=== PATIENT | male | born 1945 | race Hispanic/Latino ===

== ENCOUNTER 2016-10-25 12:30 | Day surgery (SDC) | payer MEDICARE ==
[~2016-10-25 12:30] MED LIST: ANCEF/STERILE WATER 2 GM/20 ML IV NR
--- NOTE | 2016-10-25 13:55 | Anesthesia Consultation ---
Anesthesia Consult and Med Hx Date of service: 10/25/16 - Airway Anesthetic Teeth Evaluation: Good ROM Head & Neck: Adequate Mental/Hyoid Distance: Adequate Mallampati Class: Class II Intubation Access Assessment: Probably Good - Pulmonary Exam CTA: Yes - Cardiac Exam Cardiac Exam: RRR - Pre-Operative Health Status ASA Pre-Surgery Classification: ASA3 Proposed Anesthetic Plan: General - Pulmonary Hx Smoking: Yes (STOPPED 2005 , 1 PPD X 35 YRS) Hx Asthma: No Hx Sleep Apnea: No (BETH PRE SCREEN LOW RISK) - Cardiovascular System Hx Hypertension: No (HDL) Hx Heart Attack/AMI: No Hx Percutaneous Transluminal Coronary Angioplasty (PTCA): No - Central Nervous System Hx Seizures: No CVA: No - Gastrointestinal Hx Gastroesophageal Reflux Disease: Yes (occasional) - Endocrine Hx Renal Disease: No Hx Cirrhosis: No Hx Liver Disease: Yes (liver mets sp live resection in 2013) Hx Non-Insulin Dependent Diabetes: No Hx Thyroid Disease: No - Hematic Hx Anemia: Yes - Other Systems Hx Alcohol Use: Yes (1-2 DRINKS PER DAY) Hx Cancer: Yes (rectal ca sp rectal resection, finished chemo 04/18 ) - Additional Comments Anesthesia Medical History Comments: NAC
--- NOTE | 2016-10-25 13:55 | Anesthesia Day of Surgery ---
Anesthesia Day of Surgery - Day of Surgery Patient Examined: Yes Patient H&P Reviewed: Yes Patient is NPO: Yes
[2016-10-25] MEDS ORDERED: LACTATED RINGERS 1,000 ML IV SCH (14:00)
[2016-10-25] MEDS ORDERED: PEPCID PO NR (14:00)
[2016-10-25] MEDS ORDERED: VERSED IV NR (14:00)
[2016-10-25] MEDS ORDERED: NACL BACTERIOSTATIC INFILTRATI ONE (14:16)
[2016-10-25 14:38] LABS: Basophils % (Auto) 0.6 % (0.0-1.8); Eosinophils % (Auto) 1.3 % (0.0-4.3); Hematocrit 36.1 % (35.5-45.6); Hemoglobin 12.8 gm/dl (11.8-15.2); Mean Corpuscular HGB Conc 36 % (32-34); Mean Corpuscular Hemoglobin 39 pg (28-32); Mean Corpuscular Volume 110 fl (84-94); Platelet Count 146 K/mm3 (140-440); White Blood Count 3.6 K/mm3 (4.5-11.0)
[2016-10-25] MEDS ORDERED: XYLOCAINE MPF 2% ONE (16:01)
[2016-10-25] MEDS ORDERED: DIPRIVAN 10 MG/ML IV ONE (16:01)
[2016-10-25] MEDS ORDERED: SUBLIMAZE ONE (16:01)
[2016-10-25] MEDS ORDERED: ROBINUL ONE (16:52)
[2016-10-25] MEDS ORDERED: DECADRON ONE (16:53)
[2016-10-25] MEDS ORDERED: ZOFRAN ONE (16:53)
[2016-10-25] MEDS ORDERED: ANTIBIOTIC OINT TP ONE ×2 (16:59→17:12)
--- NOTE | 2016-10-25 17:06 | Short Stay Summary ---
Short Stay Documentation Date of service: 10/25/16 - History H&P: obtained from office - Allergies and Medications Current Medications: Allergies No Known Allergies Allergy (Verified 10/23/16 15:23) Home Medications Medication Instructions Recorded Confirmed Last Taken Type Cyanocobalamin (Vitamin B-12) 1 dose IM QMONTH 10/23/16 10/25/16 10/02/16 History [Vitamin B12] Active Medications Cefazolin Sodium (Ancef/Sterile Water 2 Gm/20 Ml) 2 gm IV PREOP NR Stop: 10/25/16 23:59 Famotidine (Pepcid) 20 mg PO PREOP NR Stop: 10/25/16 23:59 Last Admin: 10/25/16 14:40 Dose: 20 mg Lactated Ringer's (Lactated Ringers) 1,000 mls @ 100 mls/hr IV DIRECT RAHEEM Last Admin: 10/25/16 14:38 Dose: 100 mls/hr Midazolam HCl (Versed) 2 mg IV PREOP NR Stop: 10/25/16 23:59 - Brief post op/procedure progress note Date of procedure: 10/25/16 Pre-op diagnosis: scrotal mass 1cm Post-op diagnosis: same Procedure: excision scrotal mass Anesthesia: GETA Surgeon: JOHANA KENNEY Estimated blood loss: minimal Pathology: list (scrotal mass) Specimen disposition: to lab Condition: stable - Hospital course Hospital course: tomás & bailey on chart - Disposition Condition at discharge: Stable Disposition: DC-01 TO HOME OR SELFCARE Short Stay Discharge Plan Follow up with: JAYCE WARREN MD [Primary Care Provider] - 7 Days
[2016-10-25] MEDS ORDERED: NACL 0.9% IR ONE (17:13)
[2016-10-25] MEDS ORDERED: DILAUDID IV PRN (17:24)
[2016-10-25] MEDS ORDERED: TORADOL IV PRN ×4 (17:24→17:50)
[2016-10-25] MEDS ORDERED: ZOFRAN IV PRN (17:24)
[2016-10-25] MEDS ORDERED: NORCO 5/325 PO PRN (17:40)
[2016-10-25 18:43] VITALS: BP 138/58
--- NOTE | 2016-10-25 21:32 | Operative Report ---
PREOPERATIVE DIAGNOSIS: Perineal mass (scrotal). POSTOPERATIVE DIAGNOSIS: Perineal mass (scrotal). PROCEDURE: Excision of perineal mass. SURGEON: Oscar Torres MD ANESTHESIA: General. ESTIMATED BLOOD LOSS: Minimal. FLUIDS: Crystalloid. COMPLICATIONS: No complications. INDICATIONS: This 71-year-old gentleman referred by Dr. Vance Anderson for evaluation for scrotal mass. The patient has a history of rectal cancer with liver mets, status post chemotherapy and radiation therapy in the past. He has actually been seen by Dr. Rayo Montoya as well and Dr. Ana Mosley and Dr. Jeyson Mosley, recently completed his chemotherapy and his port was removed. He was noted to have a perineal lesion and was excised by Dr. 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 He was seen this week and presents now for excision. Risks, benefits, and complications were explained. DESCRIPTION OF PROCEDURE: The patient was taken to the operative suite, placed in a supine position. After adequate general anesthesia, he was prepped and draped in a sterile fashion. Peritoneum could be appreciated. This mass was approximately 1 cm, which was very similar to the size before. The patient states maybe a little bigger. Using a knife excision of the mass with a margin approximately 5 mm margin of normal tissue was removed and sent for routine pathologic evaluation. Adequate hemostasis was achieved. Subcutaneous layer of 2-0 Vicryl interrupted was placed as well as 2-0 Vicryl on the skin, interrupted. The patient tolerated the procedure well. Bacitracin ointment and mesh briefs with fluffs were placed. He was extubated and taken to recovery room. He will go home on [place] and [employer] and follow up in the office. JOB# [id number] [facility]
== END 2016-10-25 19:15 | disposition home or self-care (01) ==
LOC: EDSEX 12:30 → OR 12:30
PROVIDERS: ATTEND Urology
DX: C63.2 Malignant neoplasm of scrotum (principal); K21.9 Gastro-esophageal reflux disease without esophagitis; D64.9 Anemia, unspecified; Z87.891 Personal history of nicotine dependence; Z72.89 Other problems related to lifestyle; Z85.048 Personal history of other malignant neoplasm of rectum, rectosigmoid junction, and anus; Z85.05 Personal history of malignant neoplasm of liver; Z90.49 Acquired absence of other specified parts of digestive tract
CPT/HCPCS: 11621; 12041; 36415; 85025; 88305; 88341; 88342; J0690; J1100; J1885; J2405; J2704; J3010; J7120; 88307